=== PATIENT | female | born 1990 | race Caucasian/White ===

== ENCOUNTER 2017-02-27 11:52 | Emergency (ER) | payer BC ==
[2017-02-27 14:17] VITALS: BP 109/65
== END 2017-02-27 15:03 | disposition home or self-care (01) ==
LOC: ED 11:52
DX: S09.90XA Unspecified injury of head, initial encounter (principal); M54.5 Low back pain; R11.2 Nausea with vomiting, unspecified; V00.131A Fall from skateboard, initial encounter; Y93.89 Activity, other specified; Y92.89 Other specified places as the place of occurrence of the external cause; Y99.8 Other external cause status; Z90.89 Acquired absence of other organs
CPT/HCPCS: J1885

== ENCOUNTER 2017-07-28 19:15 | Emergency (ER) | payer BC ==
[~2017-07-28] VITALS: Ht 162.6 cm; Wt 93.9 kg
[2017-07-28 22:15] VITALS: BP 117/54
== END 2017-07-28 22:15 | disposition home or self-care (01) ==
LOC: ED 19:15
DX: K08.89 Other specified disorders of teeth and supporting structures (principal)
CPT/HCPCS: J1885